=== PATIENT | female | born 1955 | race Caucasian/White ===

== ENCOUNTER 2023-02-01 06:17 | Day surgery (SDC) | payer MEDICARE, BC ==
[2023-02-01] VITALS (13 sets, daily range): BP systolic 120–142; BP diastolic 56–80
[~2023-02-01] VITALS: Ht 154.9 cm; Wt 83.8 kg
[~2023-02-01 06:17] MED LIST: ACET600C5 PO; AMLO10TA13 PO; DIPH-735 PO; HYDR-3972 PO; HYDR25TA4 PO; LISI40TA13 PO; MELA5TAB2 PO; MILK THISTLE PO; MULT-1085 PO; OMEP40CA21 PO; PRAM0.129 PO; QUER500C PO; SIMV-42 PO; famotidine 20mg tablet PO ONE; oxymetazoline 15 ML nasal spray NS ONE; ringers solution, lacted 1,000 ML IV SCH; tranexamic acid inj. 1,000 MG in normal saline IV soln 100ML IV ONE
[2023-02-01] MEDS ORDERED: tranexamic acid 100mg/ml inj. ONE (06:40)
[2023-02-01] MEDS ORDERED: epiNEPHrine 1 mg/ml inj ONE (06:40)
[2023-02-01] MEDS ORDERED: cocaine 4% topical solution 4ml bottle ONE (06:40)
[2023-02-01] MEDS ORDERED: mupirocin 2% ointment 22GM ONE ×2 (06:41→06:56)
[2023-02-01] MEDS ORDERED: oxymetazoline 15 ML nasal spray NS ONE (06:41)
[2023-02-01] MEDS ORDERED: LIDOcaine 1% W/epiNEPHrine 1:100,000 20ml vial ONE (06:41)
[2023-02-01] MEDS ORDERED: meperidine/PF 25mg/ml syringe IV PRN ×2 (07:55)
[2023-02-01] MEDS ORDERED: ondansetron/PF 4mg/2ml inj IV PRN (07:55)
[2023-02-01] MEDS ORDERED: acetaminophen 1,000mg/100ml IV 100 ML IV PRN (07:55)
[2023-02-01] MEDS ORDERED: labetalol 20mg/4ml (5mg/ml) syringe IV PRN (07:55)
[2023-02-01] MEDS ORDERED: morphine 4 MG/ML inj SYRINge IV PRN (07:55)
[2023-02-01] MEDS ORDERED: proCHLORperazine 10 MG/2 ml inj IV PRN (07:55)
[2023-02-01] MEDS ORDERED: ringers solution, lacted 1,000 ML IV SCH (07:55)
[2023-02-01] MEDS ORDERED: morphine 2 MG/ML inj. syringe IV PRN (07:55)
[2023-02-01] MEDS ORDERED: hydrALAZINE 20mg/ml inj. IV PRN (07:55)
[2023-02-01] MEDS ORDERED: dexamethasone sod phosphate 10mg/ml inj ONE (08:10)
[2023-02-01] MEDS ORDERED: sevoflurane 250ml liquid IH ONE (08:10)
[2023-02-01] MEDS ORDERED: fentaNYL/PF 50MCG/1 ML 2ML syringe ONE (08:13)
[2023-02-01] MEDS ORDERED: midazolam 1 mg/ML 2ml injection ONE (08:14)
[2023-02-01] MEDS ORDERED: ondansetron/PF 4mg/2ml inj ONE (08:35)
[2023-02-01] MEDS ORDERED: propofol inj 20 ML IV ONE (08:36)
[2023-02-01] MEDS ORDERED: LIDOcaine 2% (20mg/ml) 5ml vial ONE (08:37)
[2023-02-01] MEDS ORDERED: ePHEDrine 50MG/ML INJ. ONE (08:44)
[2023-02-01] MEDS ORDERED: 0.9 % SODIUM CHLORIDE 10 ML VIAL ONE (08:46)
--- NOTE | 2023-02-01 09:55 | NUR ---
Received from OR via [facility], accompanied by Anesthesiologist DR BOUDREAUX and report given by Anesthesiologist AND CARDER BLANKETS. PT VERY DROWSY W/LMA IN PLACE. BILAT NARES W/COTTON NOIDS IN PLACE CDI. LMA D/CD PT AWAKE, DENIES PAIN AT THIS TIME. Addendum: 02/01/23 at 1013 by Diane Del Rio RN Amended: Links added.
[2023-02-01] MEDS ORDERED: salt irrigation nasal spray 45 ML SPRAY NS PRN (10:20)
[2023-02-01] MEDS: meperidine/PF 25mg/ml syringe IV PRN ×2 (10:39→11:07)
--- NOTE | 2023-02-01 11:55 | NUR ---
JUANI GUTIERREZ D/CD AFTER 30 MINUTES PER MD ORDERS, VERY MINIMAL S/S DRAINAGE, MUSTACHE DRSG APPLIED. PT STATES PAIN TOLERABLE. D/C INSTRUCTIONS GIVEN AND GONE OVER W/PT WHO VERBALIZED UNDERSTANDING. PT D/CD TO HOME VIA W/C TO PRIVATE VEHICLE W/O INCIDENT. Addendum: 02/01/23 at 1205 by Diane Del Rio RN Amended: Links added.
[2023-02-01] MEDS ORDERED: oxymetazoline 15 ML nasal spray NS SCH (20:00)
[2023-02-01] MEDS ORDERED: mupirocin 2% ointment 22GM TP SCH (20:00)
== END 2023-02-01 11:55 | disposition home or self-care (01) ==
LOC: PAS 06:17
PROVIDERS: ATTEND Otolaryngology
DX: J34.2 Deviated nasal septum (principal); J34.3 Hypertrophy of nasal turbinates; J32.8 Other chronic sinusitis; J34.89 Other specified disorders of nose and nasal sinuses; G47.30 Sleep apnea, unspecified; I10 Essential (primary) hypertension; G25.81 Restless legs syndrome; K21.9 Gastro-esophageal reflux disease without esophagitis; M19.90 Unspecified osteoarthritis, unspecified site; Z20.822 Contact with and (suspected) exposure to COVID-19; Z90.710 Acquired absence of both cervix and uterus; Z98.890 Other specified postprocedural states; Z87.891 Personal history of nicotine dependence; Z79.899 Other long term (current) drug therapy
CPT/HCPCS: 30140; 30520; 31255; 31256; 36415; 61782; 82948; 93005; A6402; J0131; J1100; J2175; J2250; J2270; J2405; J2704; J3010; J3490; J7030; J7050; J7120; U0003; U0005; Z7506; Z7508; Z7512; 88300; 88304; 88311; A4618; A6449; A7000; J0171